=== PATIENT | male | born 1990 | race Caucasian/White ===

== ENCOUNTER 2022-03-26 15:12 | Emergency (ER) | payer BC, SELFPAY ==
[2022-03-26 15:17] VITALS: BP 113/78; PULSE 68; RESP 14; TEMP 36.3; O2SAT 100
--- NOTE | 2022-03-26 15:50 | ED.GENADUL_ITS ---
Discharge Plan Disposition Patient Disposition: HOME Condition: Stable Discharge Details Clinical Impression: Episode of syncope, Laceration of face Primary Care Provider: Unknown,Unknown ED Provider: Kitty Rosa Home Meds and New Rx's Prescriptions: No Action No Known Home Meds Discharge Instructions Instructions: Syncope (ED), Facial Laceration (ED) Additional Instructions: Have sutures removed in 5 to 7 days. After 12 to 24 hours you may wash under running soap and water. No soaking. Watch for signs infection including increased redness, drainage, increased tenderness or swelling. Allowed to air dry at least 2 hours daily. Please take Tylenol or Ibuprofen with food every 4-6 hours as needed for pain and swelling. Please watch for signs of infection to your finger from the dog bite. Please be seen in the ER any signs of infection. Please be seen again if you have any recurrent syncopal episodes. Follow up with primary care provider in 3-5 days. Return to ED sooner if any worsening or concerns. Increase oral fluids. Medical Decision Making 31-year-old male presents to the ER with a chief complaint of syncopal episode which occurred around 230 this afternoon. Reportedly was bit by a dog while looking at, and watching a Band-Aid on his left index finger when he had a syncopal episode. He says that this is happened before with seeing blood. It was witnessed by his girlfriend's father. He was out for few seconds. He did not hit his head on the desk. He has a superficial abrasion noted to his left jehovah's witness, he also has a laceration approximately 1 cm in length to his right lower chin. Bleeding is controlled upon arrival. He does also have some ecchymosis and contusion noted to his inner gum. He denies any headache, blurry vision, neck or back pain denies any chest pain or shortness of breath. He denies any nausea vomiting or any other associated symptoms. Unknown when his last tetanus vaccination was. Laceration was repaired with 6.0 Prolene No. 2 simple interrupted sutures. Wound was well approximated. Was anesthetized with 1% lidocaine and topical let applied prior to procedure. Patient tolerated well. Anesthesia was achieved. Discussed home care with patient who verbalized understanding. Patient is tolerating p.o. fluids while here in the department. No complaints. This text was generated using [employer] system, please disregard any o ddities of phrase or misspellings. HPI General Mode of arrival: ambulatory . Date/Time Provider Initiated Documentation: 03/26/22 15:35 . Limitations to Documentation: no limitations . Information obtained by: patient, RN notes reviewed and old records reviewed . HPI Narrative: 31-year-old male presents to the ER with a chief complaint of syncopal episode which occurred around 230 this afternoon. Reportedly was bit by a dog while looking at, and watching a Band-Aid on his left index finger when he had a syncopal episode. He says that this is happened before with seeing blood. It was witnessed by his girlfriend's father. He was out for few seconds. He did not hit his head on the desk. He has a superficial abrasion noted to his left jehovah's witness, he also has a laceration approximately 1 cm in length to his right lower chin. Bleeding is controlled upon arrival. He does also have some ecchymosis and contusion noted to his inner gum. He denies any headache, blurry vision, neck or back pain denies any chest pain or shortness of breath. He denies any nausea vomiting or any other associated symptoms. Unknown when his last tetanus vaccination was. Related Data Home Medications Medication Instructions Recorded Confirmed Unknown [No Known Home Meds] 03/26/22 03/26/22 Allergies Allergy/AdvReac Type Severity Reaction Status Date / Time No Known Allergies Allergy Unverified 03/26/22 15:26 General Stated Complaint: Dizzy/Sync MARY: 3 Review of Systems All systems reviewed & are unremarkable except as noted in HPI and below Constitutional Constitutional: Reports as per HPI, Denies fever(s), Denies headache(s) and Denies weakness Eyes Eyes: Denies other visual disturbances ENT Ears, Nose, Mouth, and Throat: Reports as per HPI, Denies vertigo and Denies headache(s) Cardiovascular Cardiovascular: Denies chest pain, Reports syncope and Denies dyspnea Respiratory Respiratory: Denies dyspnea Musculoskeletal Musculoskeletal: Denies abnormal gait Integumentary/Breasts Skin/Breast: Reports as per HPI and Reports wounds Neurologic Neurologic: Denies abnormal gait, Denies confusion, Denies vertigo, Reports syncope, Denies headache(s) and Denies weakness Psychiatric Psychiatric: Denies confusion PFSH All Active Problems (Updated 03/26/22 @ 17:52 by Kitty Rosa) Episode of syncope (Chronic) Laceration of face (Acute) Social History Smoking/Tobacco Use Status: Never Smoking risk assessment performed?: Yes Alcohol Intake: current Alcohol Intake frequency: a few times a month Drug use: Daily Substance use type: marijuana Do you feel safe at home: Yes Do you feel safe in your relationship?: Yes Exam HENAZ Head: no palpable skull fracture, abrasion and laceration Head images: 1. Approximately 1 cm laceration partial-thickness 2. Superficial abrasion Teeth image: 1. Ecchymosis and contusion Resp Effort & Inspection: normal respiratory effort and able to speak in complete sentences Auscultation: clear to auscultation bilaterally Cardio Rate: regular rate Rhythm: regular rhythm Heart Sounds: S1 normal and S2 normal Skin Wounds: wounds noted (See HENT) Course Vital Signs Vital signs: Vital Signs Temperature 36.3 C L 03/26/22 15:17 Pulse 68 03/26/22 15:17 Respiratory Rate 14 03/26/22 15:17 Blood Pressure 113/78 03/26/22 15:17 Pulse Oximetry 100 03/26/22 15:17 Temperature 36.3 C L 03/26/22 15:17 Temperature Source Skin 03/26/22 15:17 Pulse 68 03/26/22 15:17 Respiratory Rate 14 03/26/22 15:17 Respiratory Effort 03/26/22 15:26 Blood Pressure 113/78 03/26/22 15:17 Blood Pressure Position Sitting 03/26/22 15:17 Pulse Oximetry 100 03/26/22 15:17 Oxygen Delivery Method Room Air 03/26/22 15:17 Oxygen Flow Rate 0 03/26/22 15:17 Pain Level 2 03/26/22 15:17 Procedures Laceration Laceration 1: Site: face Side (If applicable): right Size (cm): 1 Description: linear and irregular Depth: simple, single layer Local Anesthetic: Lidocaine 1% and with Epi Amount of anesthesia used (mL): 2 Pre-repair: wound explored, irrigated extensively and deep structures intact Skin layer closed with: nylon Size (cm): 6-0 Number of sutures: 2 Technique: simple, interrupted PAWSS Have you Been Recently Intoxicated or Drunk Within the Last 30 days?: No Have you Ever Experienced Previous Episodes of Alcohol Withdrawal?: No Have you ever Experienced Withdrawal Seizures?: No Have you ever Experienced Delirium Tremens(DT)s?: No Have you ever undergone Alcohol Rehabilitation Treatment (i.e, inpt ot outpatient treatment programs)?: No Have you ever Experienced Blackouts?: Yes Have you ever Combined Alcohol with other Downers within the last 90 days?: No Have you ever Combined Alcohol with any other Substance of Abuse during the last 90 days?: No Positive Blood Alcohol level on Presentation? [PCS.BAL]: No Evidence of Increased Autonomic Activity (i.e. HR>120, tremor, sweating, agitation, nausea)?: No Result: 1
[2022-03-26] MEDS: Lidocaine/Epinephri/Tetracaine Topical Gel 3 ML TP (16:47)
[2022-03-26 18:00] VITALS: BP 122/72; PULSE 79; RESP 16; O2SAT 95
[2022-03-26 18:27] VITALS: RESP 16
== END 2022-03-26 18:00 | disposition home or self-care (01) ==
PROVIDERS: Emergency Provider Registered Nurse Emergency
DX: R55 Syncope and collapse (principal); S01.81XA Laceration without foreign body of other part of head, initial encounter; W18.39XA Other fall on same level, initial encounter; S61.251A Open bite of left index finger without damage to nail, initial encounter; W54.0XXA Bitten by dog, initial encounter
CPT/HCPCS: 12011; 90471; 99284; 99283